=== PATIENT | male | born 1965 | race Caucasian/White ===

== ENCOUNTER → 2018-07-19 | Outpatient (CLI) | payer BC ==
--- NOTE | 2018-07-19 14:42 | Diagnostic Imaging Report ---
INDICATION: Bilateral knee pain. TIME OF EXAM: 02:20 p.m. Multiple views bilateral knees were obtained. The joint spaces are well maintained. The articular surfaces are smooth. No fracture, dislocation or effusion is seen within either knee. IMPRESSION: No acute bony abnormalities detected. Dictated by: Dictated on workstation # [id number]
== END ==
LOC: RAD FS 14:08
PROVIDERS: ATTEND Family Medicine
DX: M17.0 Bilateral primary osteoarthritis of knee (principal)